=== PATIENT | female | born 1975 | race African-American/Black ===

== ENCOUNTER → 2018-01-21 | Outpatient (CLI) | payer BC ==
--- NOTE | 2018-01-21 13:09 | Diagnostic Imaging Report ---
PROCEDURE:X-RAY ABDOMEN - KUB COMPARISON:None. INDICATIONS:CALCULUS OF KIDNEY FINDINGS: There are no dilated loops of bowel to suggest obstruction. There are no masses. No conclusive evidence of renal or ureteral stones. Left pelvic calcification likely represents a phlebolith. There are bilateral Essure devices. There is no evidence of free air. No acute osseous abnormalities are present. Mild degenerative changes of the spine. CONCLUSION: No acute abdominal abnormality. Irving Jean D.O. Dictated by: Irving Jean D.O. on 01/21/2018 at 13:08 Electronically approved by: Irving Jean D.O. on 01/21/2018 at 13:08
== END ==
LOC: RAD 11:35
PROVIDERS: ATTEND Urology
DX: N20.0 Calculus of kidney (principal)
CPT/HCPCS: 74018

== ENCOUNTER → 2021-09-27 | Day surgery (SDC) | payer BC ==
[2021-09-25 16:03] LABS: ANION GAP 16.8 mmol/L (8-16); CALCIUM 8.3 mg/dL (8.4-10.2); CREATININE, SERUM 0.89 mg/dL (0.57-1.11); POTASSIUM 3.8 mmol/L (3.5-5.1)
[~2021-09-27] MED LIST: ACETAMINOPHEN 1000 MG/100 ML 100 ML IV ONE; ALLOPURINOL300 MG PO; ASPIRIN81 MG PO; BACTRIM DS TAB1 EACH PO; BUPIVACAINE HCL 0.5% INJ 30 ML VIAL INJ ONE; CATAPRES-TTS 31 EA TD; CLONIDINE HCL0.1 MG PO; COLCRYS0.6 MG PO; COMBIVENT RESPIM4 GM NEB; DEXAMETHASONE SOD PHOS INJ 4 MG/ML SDV ONE; DICLOFENAC SODI25 MG PO; FARXIGA10 MG PEG; FENTANYL CITRATE/PF 100MCG/2 ML INJ ONE; FLONASE ALLERG9.9 ML INH; GABAPENTIN300 MG PO; GLIPIZIDE5 MG PO; HUMALOG100 UNIT/1 SQ; HYDROCHLOROTH12.5 MG PO; HYDROCODON-ACE1 EAC9 PO; KETOROLAC TROMETHAMINE 30 MG/ML VIAL ONE; LEVOFLOXACIN250 MG PO; LIDOCAINE HCL 2% LOCAL INJ 5 ML SDV VIAL INJ ONE; LIPITOR10 MG PO; METOPROLOL SUCC25 MG PO; MIDAZOLAM HCL 2 MG/2 ML VIAL ONE; MUPIROCIN 2% OINT 22 GM TUBE ONE; NORVASC2.5 MG PO; ONDANSETRON HCL INJ 2MG/ML 2ML 2 MG/ML VIAL ONE; POTASSIUM CHLO10 ME1 PO; POVIDONE IODINE 0.05% 0.05 % ML PO ONE; PREDNISONE20 MG PO; PROAIR DIGIHAL90 MCG INH; PROMETRIUM100 MG PO; PROPOFOL IV EMULSION 10 MG/ML 20 ML VIAL ONE; SEVOFLURANE INHAL SOLN 250 ML PEN BTL ONE; SODIUM CHLORIDE 0.9% 50ML 50 ML ONE; Vancomycin IV 1 GM VIAL ONE; ZESTRIL10 MG PO
[2021-09-27 08:10] VITALS: BP 151/99
== END | disposition home or self-care (01) ==
LOC: OR 05:19
PROVIDERS: ATTEND Podiatrist Foot & Ankle Surgery
DX: M86.072 Acute hematogenous osteomyelitis, left ankle and foot (principal); M86.071 Acute hematogenous osteomyelitis, right ankle and foot; L97.526 Non-pressure chronic ulcer of other part of left foot with bone involvement without evidence of necrosis; L97.516 Non-pressure chronic ulcer of other part of right foot with bone involvement without evidence of necrosis; M06.9 Rheumatoid arthritis, unspecified; G47.33 Obstructive sleep apnea (adult) (pediatric); G89.29 Other chronic pain; J45.909 Unspecified asthma, uncomplicated; I10 Essential (primary) hypertension; E78.5 Hyperlipidemia, unspecified; E11.9 Type 2 diabetes mellitus without complications; Z91.041 Radiographic dye allergy status; Z01.810 Encounter for preprocedural cardiovascular examination; Z01.812 Encounter for preprocedural laboratory examination; Z01.818 Encounter for other preprocedural examination; Z20.822 Contact with and (suspected) exposure to COVID-19; Z79.82 Long term (current) use of aspirin; Z79.4 Long term (current) use of insulin; Z79.52 Long term (current) use of systemic steroids; Z79.899 Other long term (current) drug therapy
CPT/HCPCS: 28825 ×2; 36415 ×2; 71046; 80048; 84702; 88305; 88311; 93005; J0131; J0690; J1100; J1885; J2001; J2250; J2405; J2704; J3010; U0002; 88304; J3370